=== PATIENT | male | born 1980 | race Caucasian/White ===

== ENCOUNTER 2021-01-10 17:40 | Observation (INO) ==
[2021-01-10] MEDS ORDERED: LORazepam 1 MG/2 ML VIAL IV STA (17:53)
[2021-01-10] MEDS ORDERED: SODIUM CHLORIDE 0.9% 1000ML 1,000 ML IV SCH (18:00)
[2021-01-10 18:11] LABS: Basophils # (auto) 0.02 K/uL (0-0.2); Basophils % (auto) 0.3 %; Hematocrit (blood only) 46.7 % (42-52); Hemoglobin 15.6 g/dL (14.0-18.0); Immature Granulocytes # (auto) 0.01 K/uL (0.00-0.02); Immature Granulocytes % (auto) 0.1 %; Lymphocytes # (auto) 2.41 K/uL (1.2-3.4); Lymphocytes % (auto) 32.5 %; Mean Corpuscular Hemoglobin 30.5 pg (25-34); Mean Corpuscular Hgb Conc 33.4 g/dL (32-36); Mean Corpuscular Volume 91.4 fL (80-100); Mean Platelet Volume 10.6 fL (7.4-10.4); Monocytes # (auto) 0.59 K/uL (0.11-0.59); Neutrophils # (auto) 4.38 K/uL (1.4-6.5); Neutrophils % (auto) 59.1 %; Platelet Count 237 K/uL (130-400); RDW Coefficient of Variation 14.6 % (11.5-14.5); RDW Standard Deviation 49.4 fL (36.4-46.3); Red Blood Count 5.11 M/uL (4.7-6.1); White Blood Count 7.41 K/uL (4.8-10.8)
--- NOTE | 2021-01-10 18:17 | Emergency Department Note ---
Impression & Plan Syncope, Abnormal EKG ED Provider Note NAME: JUWAN SANTACRUZ AGE: 40 SEX: M : 1980 ARRIVES VIA: Ambulance INFORMANT: Patient, ED PROVIDER(S): Carlitos Berumen DO CHIEF COMPLAINT: Syncope HPI: The patient is a 40-year-old male who presented to the emergency department for an evaluation after having a syncopal episode. It is unclear if the patient had a syncopal episode or a seizure. 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 There was reported shaking but no definite seizure activity. The patient did not bite his tongue. There is no definite reported postictal phase. The patient presented by ambulance very anxious. The patient self states he has no medical history but further history is obtained from his via telephone. He has been noticed to be having increasing anxiety recently. His significant other noticed that his blood pressure was elevated. He was taken to an urgent care center yesterday and started on Lexapro and Vistaril. He has been taking these medications but they are all new medications as of the last 48 hours. He also g ot a referral for psychiatric evaluation. The patient states that he has been noticing palpitations. He is also been noticing anxiety as well as tremors. He denies having any nausea or chest pain. He denies having any vomiting or fever. He said no exposure to COVID-19. The patient states that he is never had a cardiac work-up in the past. He was noted to have an abnormal EKG by the prehospital personnel. The patient states he does not remember ever having an EKG before or being told that it was abnormal. The patient denies any drug or alcohol use. ROS: See above HPI for pertinent positives & negatives. A total of 10 systems reviewed and were otherwise negative. PAST MEDICAL HISTORY: See Below PAST SURGICAL HISTORY: See Below FAMILY HISTORY: See Below SOCIAL HISTORY: See Below HOME MEDICATIONS: See Below ALLERGIES: See Below VITALS: See Below PHYSICAL EXAMINATION: GENERAL: The patient is awake and alert. He is very anxious appearing. EYES: The conjunctivae are clear. The pupils are round and reactive. EARS, NOSE, MOUTH AND THROAT: The nose is without any evidence of any deformity. NECK: The neck is nontender and supple. RESPIRATORY: Normal respiratory effort is noted there is no evidence of wheezing rhonchi or rales CARDIOVASCULAR: Regular rate and rhythm noted there no murmurs rubs or gallops normal S1 normal S2. GASTROINTESTINAL: The abdomen is soft. Abdomen is nontender. MUSCULOSKELETAL/EXTREMITIES: There is no evidence of gross deformity full range of motion is noted in the hips and shoulders. SKIN: There is no obvious evidence of any rash. There are no petechiae, pallor or cyanosis noted. NEUROLOGIC: Patient is awake alert and oriented x3 strength is symmetric patellar reflexes are 2+ bilaterally. The patient is tremulous in both upper and lower extremities. MEDICAL DECISION MAKING: The patient is a 40-year-old male who presented to the emergency department from his worksite for having an episode of syncope. It was advertised a seizure although the patient did not have a definite postictal phase. The patient was found to have a very abnormal EKG on arrival. The EKG was obtained from prehospital personnel. Our initial EKG in the emergency department appeared a little bit improved. He was recently started on a psychiatric medication for presumed depression and anxiety. I discussed the patient's laboratory and radiographic studies with him. He was treated with a small amount of Ativan in the emergency department and on reevaluation was significantly improved. He was feeling much better. I did recommend the patient be evaluated by the hospitalist for further inpatient work-up especially for his abnormal EKG. Initially the patient wished to be discharged home but ultimately when his significant other came to the emergency department she was able to convince him to be evaluated by the hospitalist. I discussed his case with the on-call [facility] hospitalist. They have agreed to evaluate the patient in the emergency department for further management and disposition. Triage Nursing notes reviewed. Prior medical records reviewed Vital Signs: reviewed and remarkable for no significant abnormalities Differential diagnosis: Vasovagal event, dehydration, infection, hypoglycemia, electrolyte abnormalities, cardiac sources, intracerebral event, pulmonary embolism, seizure, toxicologic, neurologic, as well as other pathologies. ER treatment provided: See below Diagnostics interpreted by me: ECG: EKG was obtained in the emergency department. My interpretation is sinus tachycardia at 104 bpm. First-degree AV block was noted. Nonspecific interventricular conduction delay was noted. No previous tracing was available. The patient had a prehospital tracing prior to arrival. My interpretation is sinus tachycardia at 85 bpm. The QRS duration was prolonged compared to the tracing in the emergency department. Cardiac Monitoring: An order was placed for continuous cardiac monitoring. The monitor shows a rate of 75 bpm sinus with rhythm. Laboratory studies: As stated above and show below. Imaging studies: See below Consultation(s): I discussed this case with Dr. Rangel who is on-call for the [facility] hospitalist group. He will evaluate the patient in the emergency department for further management and disposition. Past Med/Surg History Medical History History of Graves' disease Social History Smoking Status: Current every day smoker Tobacco Type: Cigarettes Cigarettes Per Day: 20; Second Hand Exposure: No; Do You Dip or Chew Tobacco: No; Tobacco Cessation Education Requested by Patient: No Hx Alcohol Use: Yes Hx Substance Use: No Preferred Language: Panamanian Communication Ability: Effective Beam Racker Required: No Beliefs That Will Affect Care: None Current Living Situation: Family Other Information That Helps Us Care for You: No Feels Safe at Home: Yes Assistive Devices: None Allergies Allergies Allergy/AdvReac Type Severity Reaction Status Date / Time No Known Allergies Allergy Unverified 01/10/21 18:34 Home Meds Home Medications Medication Instructions Recorded Confirmed escitalopram oxalate 10 mg tablet 10 mg PO DAILY 01/10/21 01/10/21 hydroxyzine HCl 25 mg tablet 25 mg PO HS 01/10/21 01/10/21 Results & Data (ED) Vital Signs Vital Signs - 24 hr 01/10/21 17:50 01/10/21 17:51 01/10/21 18:01 Temperature 36.8 C Temperature Source Oral Pulse Rate 104 H 108 H 100 H Pulse Rate from SpO2 Sensor 109 H 99 H Pulse Rhythm Regular Pulse Strength Normal Respiratory Rate 18 18 21 Respiratory Effort / Characteristics Non-Labored Spontaneous Respiratory Depth Normal Blood Pressure 148/97 H 115/87 147/91 H Blood Pressure Mean 114 96 109 Blood Pressure Position Lying Pulse Oximetry 96 96 99 Oxygen Delivery Method Room Air Room Air Room Air Sepsis Recent Fever Within 48 Hours No Sepsis New/Unexplained Change in Mental Status N/A Sepsis Action Taken by Nursing No Action Required 01/10/21 18:20 01/10/21 18:22 01/10/21 18:30 Temperature Temperature Source Pulse Rate 96 H 97 H Pulse Rate from SpO2 Sensor 95 H Pulse Rhythm Pulse Strength Respiratory Rate 20 19 Respiratory Effort / Characteristics Respiratory Depth Blood Pressure 140/98 Blood Pressure Mean 112 Blood Pressure Position Pulse Oximetry 96 96 97 Oxygen Delivery Method Room Air Room Air Room Air Sepsis Recent Fever Within 48 Hours Sepsis New/Unexplained Change in Mental Status Sepsis Action Taken by Nursing 01/10/21 19:15 01/10/21 19:31 01/10/21 20:03 Temperature Temperature Source Pulse Rate 94 H 93 H 92 H Pulse Rate from SpO2 Sensor 95 H 93 H Pulse Rhythm Pulse Strength Respiratory Rate 23 20 20 Respiratory Effort / Characteristics Respiratory Depth Blood Pressure 138/90 113/59 L Blood Pressure Mean 106 77 Blood Pressure Position Pulse Oximetry 96 96 98 Oxygen Delivery Method Room Air Room Air Sepsis Recent Fever Within 48 Hours Sepsis New/Unexplained Change in Mental Status Sepsis Action Taken by Nursing 01/10/21 20:10 01/10/21 20:20 01/10/21 20:30 Temperature Temperature Source Pulse Rate 92 H 91 H 91 H Pulse Rate from SpO2 Sensor Pulse Rhythm Pulse Strength Respiratory Rate 16 22 20 Respiratory Effort / Characteristics Respiratory Depth Blood Pressure Blood Pressure Mean Blood Pressure Position Pulse Oximetry 98 98 98 Oxygen Delivery Method Sepsis Recent Fever Within 48 Hours Sepsis New/Unexplained Change in Mental Status Sepsis Action Taken by Nursing 01/10/21 20:44 01/10/21 21:00 01/10/21 21:30 Temperature Temperature Source Pulse Rate 92 H 82 81 Pulse Rate from SpO2 Sensor 83 81 Pulse Rhythm Pulse Strength Respiratory Rate 16 23 24 Respiratory Effort / Characteristics Respiratory Depth Blood Pressure 122/89 106/86 126/80 Blood Pressure Mean 100 92 95 Blood Pressure Position Pulse Oximetry 98 97 95 Oxygen Delivery Method Room Air Room Air Sepsis Recent Fever Within 48 Hours Sepsis New/Unexplained Change in Mental Status Sepsis Action Taken by Nursing 01/10/21 22:00 Temperature Temperature Source Pulse Rate 78 Pulse Rate from SpO2 Sensor 78 Pulse Rhythm Pulse Strength Respiratory Rate 21 Respiratory Effort / Characteristics Respiratory Depth Blood Pressure 105/62 Blood Pressure Mean 76 Blood Pressure Position Pulse Oximetry 95 Oxygen Delivery Method Room Air Sepsis Recent Fever Within 48 Hours Sepsis New/Unexplained Change in Mental Status Sepsis Action Taken by Snf Medications Current Medication List: was personally reviewed by me Laboratory Data Attestation: I reviewed the patient's lab results. Result diagrams: 01/10/21 17:57 01/10/21 17:57 Lab Results 01/10/21 01/10/21 01/10/21 Range/Units 17:57 17:57 17:57 WBC 7.41 (4.8-10.8) K/uL RBC 5.11 (4.7-6.1) M/uL Hgb 15.6 (14.0-18.0) g/dL POC Hgb (14.0-18.0) g/dl Hct 46.7 (42-52) % POC Hct (42-52) % MCV 91.4 (80-100) fL MCH 30.5 (25-34) pg MCHC 33.4 (32-36) g/dL RDW Std Deviation 49.4 H (36.4-46.3) fL RDW Coeff of Maci 14.6 H (11.5-14.5) % Plt Count 237 (130-400) K/uL MPV 10.6 H (7.4-10.4) fL Immature Gran % (Auto) 0.1 % Neut % (Auto) 59.1 % Lymph % (Auto) 32.5 % [place]roy[place] % (Auto) 8.0 % Eos % (Auto) 0.0 % Baso % (Auto) 0.3 % Neut # (Auto) 4.38 (1.4-6.5) K/uL Lymph # (Auto) 2.41 (1.2-3.4) K/uL [place] # (Auto) 0.59 (0.11-0.59) K/uL Eos # (Auto) 0.00 (0-0.5) K/uL Baso # (Auto) 0.02 (0-0.2) K/uL Immature Gran # (Auto) 0.01 (0.00-0.02) K/uL PT 10.7 (9.0-12.0) Seconds INR 1.1 (0.9-1.1) APTT 29.6 (21.0-31.0) Seconds PTT Ratio 1.1 VBG pH (7.36-7.41) VBG pCO2 (38-50) mmHg VBG pO2 mmHg VBG HCO3 mmol/L VBG O2 Saturation % VBG Base Excess mEq/L Barometric Pressure mm/Hg POC Sodium (135-144) mmol/L Sodium 141 (136-145) mmol/L POC Potassium (3.3-5.0) mmol/L Potassium 3.9 (3.5-5.1) mmol/L POC Chloride (101-112) mmol/L Chloride 110 H (98-107) mmol/L Carbon Dioxide 24 (21-32) mmol/L POC Total CO2 (24-31) mmol/L Anion Gap 8.0 (3-11) POC Anion Gap (16-25) mmol/L POC BUN (7-18) mg/dl BUN 17 (7-18) mg/dl Creatinine 0.96 (0.6-1.4) mg/dl POC Creatinine (0.6-1.3) mg/dl Est Cr Clr Drug Dosing 100.9 ml/min Est GFR ( Amer) 115.7 ml/min Est GFR (Non-Af Amer) 99.9 ml/min BUN/Creatinine Ratio 18.1 (10-20) Glucose 86 (70-99) mg/dl POC Glucose (other) (70-99) mg/dl Calcium 7.8 L (8.5-10.1) mg/dl POC Ioniz Calcium Elan (1.12-1.32) mmol/l Magnesium 2.2 (1.8-2.4) mg/dl Total Bilirubin 0.6 (0.2-1) mg/dl AST 85 H (15-37) U/L ALT 267 H (12-78) U/L Alkaline Phosphatase 83 (45-117) U/L Total Creatine Kinase 80 (39-308) U/L Troponin I < 0.015 (0-0.045) ng/ml Total Protein 7.4 (6.4-8.2) gm/dl Albumin 3.9 (3.4-5.0) gm/dl Globulin 3.5 (2.5-4.0) gm/dl Albumin/Globulin Ratio 1.1 (0.9-2) Lipase 105 (73-393) U/L TSH 0.445 (0.300-4.500) uIu/ml Prolactin ng/ml Urine Color Urine Appearance (Clear) Urine pH (4.5-7.5) Ur Specific [place] (1.000-1.030) Urine Protein (Negative) Urine Glucose (UA) (Negative) Urine Ketones (Negative) Urine Blood (Negative) Urine Nitrite (Negative) Urine Bilirubin (Negative) Urine Urobilinogen (Negative) Ur Leukocyte Esterase (Negative) Urine WBC (Auto) (0-5) /hpf Urine RBC (Auto) (0-4) /hpf U Hyaline Cast (Auto) (0-5) /lpf U Epithel Cells (Auto) (0-5) /lpf Urine Bacteria (Auto) (Negative) Salicylates (2.8-20) mg/dl Urine Opiates Screen (Neg) Ur Methadone, Qual (Neg) Acetaminophen (10-30) ug/ml Urine Barbiturates (Neg) Ur Phencyclidine (PCP) (Neg) U Amphetamin/Meth Scrn (Neg) MDMA (Ecstasy) Screen (Neg) U Benzodiazepines Scrn (Neg) Ur Cocaine Metabolite (Neg) U Marijuana (THC) Screen (Neg) Ethyl Alcohol mg/dL (0-3) mg/dl COVID-19 Eval Order SARS-CoV-2 (PCR) (Negative) 01/10/21 01/10/21 01/10/21 Range/Units 17:57 17:57 18:17 WBC (4.8-10.8) K/uL RBC (4.7-6.1) M/uL Hgb (14.0-18.0) g/dL POC Hgb (14.0-18.0) g/dl Hct (42-52) % POC Hct (42-52) % MCV (80-100) fL MCH (25-34) pg MCHC (32-36) g/dL RDW Std Deviation (36.4-46.3) fL RDW Coeff of Maci (11.5-14.5) % Plt Count (130-400) K/uL MPV (7.4-10.4) fL Immature Gran % (Auto) % Neut % (Auto) % Lymph % (Auto) % [place] % (Auto) % Eos % (Auto) % Baso % (Auto) % Neut # (Auto) (1.4-6.5) K/uL Lymph # (Auto) (1.2-3.4) K/uL [place] # (Auto) (0.11-0.59) K/uL Eos # (Auto) (0-0.5) K/uL Baso # (Auto) (0-0.2) K/uL Immature Gran # (Auto) (0.00-0.02) K/uL PT (9.0-12.0) Seconds INR (0.9-1.1) APTT (21.0-31.0) Seconds PTT Ratio VBG pH (7.36-7.41) VBG pCO2 (38-50) mmHg VBG pO2 mmHg VBG HCO3 mmol/L VBG O2 Saturation % VBG Base Excess mEq/L Barometric Pressure mm/Hg POC Sodium (135-144) mmol/L Sodium (136-145) mmol/L POC Potassium (3.3-5.0) mmol/L Potassium (3.5-5.1) mmol/L POC Chloride (101-112) mmol/L Chloride (98-107) mmol/L Carbon Dioxide (21-32) mmol/L POC Total CO2 (24-31) mmol/L Anion Gap (3-11) POC Anion Gap (16-25) mmol/L POC BUN (7-18) mg/dl BUN (7-18) mg/dl Creatinine (0.6-1.4) mg/dl POC Creatinine (0.6-1.3) mg/dl Est Cr Clr Drug Dosing ml/min Est GFR ( Amer) ml/min Est GFR (Non-Af Amer) ml/min BUN/Creatinine Ratio (10-20) Glucose (70-99) mg/dl POC Glucose (other) (70-99) mg/dl Calcium (8.5-10.1) mg/dl POC Ioniz Calcium Elan (1.12-1.32) mmol/l Magnesium (1.8-2.4) mg/dl Total Bilirubin (0.2-1) mg/dl AST (15-37) U/L ALT (12-78) U/L Alkaline Phosphatase (45-117) U/L Total Creatine Kinase (39-308) U/L Troponin I (0-0.045) ng/ml Total Protein (6.4-8.2) gm/dl Albumin (3.4-5.0) gm/dl Globulin (2.5-4.0) gm/dl Albumin/Globulin Ratio (0.9-2) Lipase (73-393) U/L TSH (0.300-4.500) uIu/ml Prolactin 46.64 ng/ml Urine Color Urine Appearance (Clear) Urine pH (4.5-7.5) Ur Specific [place] (1.000-1.030) Urine Protein (Negative) Urine Glucose (UA) (Negative) Urine Ketones (Negative) Urine Blood (Negative) Urine Nitrite (Negative) Urine Bilirubin (Negative) Urine Urobilinogen (Negative) Ur Leukocyte Esterase (Negative) Urine WBC (Auto) (0-5) /hpf Urine RBC (Auto) (0-4) /hpf U Hyaline Cast (Auto) (0-5) /lpf U Epithel Cells (Auto) (0-5) /lpf Urine Bacteria (Auto) (Negative) Salicylates < 1.7 L (2.8-20) mg/dl Urine Opiates Screen (Neg) Ur Methadone, Qual (Neg) Acetaminophen < 2 L (10-30) ug/ml Urine Barbiturates (Neg) Ur Phencyclidine (PCP) (Neg) U Amphetamin/Meth Scrn (Neg) MDMA (Ecstasy) Screen (Neg) U Benzodiazepines Scrn (Neg) Ur Cocaine Metabolite (Neg) U Marijuana (THC) Screen (Neg) Ethyl Alcohol mg/dL < 3.0 (0-3) mg/dl COVID-19 Eval Order SARS-CoV-2 (PCR) (Negative) 01/10/21 01/10/21 01/10/21 Range/Units 18:17 18:31 18:35 WBC (4.8-10.8) K/uL RBC (4.7-6.1) M/uL Hgb (14.0-18.0) g/dL POC Hgb 14.3 (14.0-18.0) g/dl Hct (42-52) % POC Hct 42 (42-52) % MCV (80-100) fL MCH (25-34) pg MCHC (32-36) g/dL RDW Std Deviation (36.4-46.3) fL RDW Coeff of Maci (11.5-14.5) % Plt Count (130-400) K/uL MPV (7.4-10.4) fL Immature Gran % (Auto) % Neut % (Auto) % Lymph % (Auto) % [place] % (Auto) % Eos % (Auto) % Baso % (Auto) % Neut # (Auto) (1.4-6.5) K/uL Lymph # (Auto) (1.2-3.4) K/uL [place] # (Auto) (0.11-0.59) K/uL Eos # (Auto) (0-0.5) K/uL Baso # (Auto) (0-0.2) K/uL Immature Gran # (Auto) (0.00-0.02) K/uL PT (9.0-12.0) Seconds INR (0.9-1.1) APTT (21.0-31.0) Seconds PTT Ratio VBG pH 7.36 (7.36-7.41) VBG pCO2 46 (38-50) mmHg VBG pO2 25 mmHg VBG HCO3 25 mmol/L VBG O2 Saturation < 60.0 % VBG Base Excess -0.4 mEq/L Barometric Pressure 732.0 mm/Hg POC Sodium 143 (135-144) mmol/L Sodium (136-145) mmol/L POC Potassium 4.4 (3.3-5.0) mmol/L Potassium (3.5-5.1) mmol/L POC Chloride 104 (101-112) mmol/L Chloride (98-107) mmol/L Carbon Dioxide (21-32) mmol/L POC Total CO2 24 (24-31) mmol/L Anion Gap (3-11) POC Anion Gap 20.0 (16-25) mmol/L POC BUN 18 (7-18) mg/dl BUN (7-18) mg/dl Creatinine (0.6-1.4) mg/dl POC Creatinine 0.8 (0.6-1.3) mg/dl Est Cr Clr Drug Dosing ml/min Est GFR ( Amer) ml/min Est GFR (Non-Af Amer) ml/min BUN/Creatinine Ratio (10-20) Glucose (70-99) mg/dl POC Glucose (other) 86 (70-99) mg/dl Calcium (8.5-10.1) mg/dl POC Ioniz Calcium Elan 1.02 L (1.12-1.32) mmol/l Magnesium (1.8-2.4) mg/dl Total Bilirubin (0.2-1) mg/dl AST (15-37) U/L ALT (12-78) U/L Alkaline Phosphatase (45-117) U/L Total Creatine Kinase (39-308) U/L Troponin I (0-0.045) ng/ml Total Protein (6.4-8.2) gm/dl Albumin (3.4-5.0) gm/dl Globulin (2.5-4.0) gm/dl Albumin/Globulin Ratio (0.9-2) Lipase (73-393) U/L TSH (0.300-4.500) uIu/ml Prolactin ng/ml Urine Color Yellow Urine Appearance Clear (Clear) Urine pH 6.0 (4.5-7.5) Ur Specific [place] 1.018 (1.000-1.030) Urine Protein Negative (Negative) Urine Glucose (UA) Negative (Negative) Urine Ketones Negative (Negative) Urine Blood Negative (Negative) Urine Nitrite Negative (Negative) Urine Bilirubin Negative (Negative) Urine Urobilinogen Negative (Negative) Ur Leukocyte Esterase Trace H (Negative) Urine WBC (Auto) 10-30 H (0-5) /hpf Urine RBC (Auto) 0-4 (0-4) /hpf U Hyaline Cast (Auto) 1-5 (0-5) /lpf U Epithel Cells (Auto) 10-20 H (0-5) /lpf Urine Bacteria (Auto) Negative (Negative) Salicylates (2.8-20) mg/dl Urine Opiates Screen (Neg) Ur Methadone, Qual (Neg) Acetaminophen (10-30) ug/ml Urine Barbiturates (Neg) Ur Phencyclidine (PCP) (Neg) U Amphetamin/Meth Scrn (Neg) MDMA (Ecstasy) Screen (Neg) U Benzodiazepines Scrn (Neg) Ur Cocaine Metabolite (Neg) U Marijuana (THC) Screen (Neg) Ethyl Alcohol mg/dL (0-3) mg/dl COVID-19 Eval Order SARS-CoV-2 (PCR) (Negative) 01/10/21 01/10/21 01/10/21 Range/Units 18:35 21:09 21:09 WBC (4.8-10.8) K/uL RBC (4.7-6.1) M/uL Hgb (14.0-18.0) g/dL POC Hgb (14.0-18.0) g/dl Hct (42-52) % POC Hct (42-52) % MCV (80-100) fL MCH (25-34) pg MCHC (32-36) g/dL RDW Std Deviation (36.4-46.3) fL RDW Coeff of Maci (11.5-14.5) % Plt Count (130-400) K/uL MPV (7.4-10.4) fL Immature Gran % (Auto) % Neut % (Auto) % Lymph % (Auto) % [place] % (Auto) % Eos % (Auto) % Baso % (Auto) % Neut # (Auto) (1.4-6.5) K/uL Lymph # (Auto) (1.2-3.4) K/uL [place] # (Auto) (0.11-0.59) K/uL Eos # (Auto) (0-0.5) K/uL Baso # (Auto) (0-0.2) K/uL Immature Gran # (Auto) (0.00-0.02) K/uL PT (9.0-12.0) Seconds INR (0.9-1.1) APTT (21.0-31.0) Seconds PTT Ratio VBG pH (7.36-7.41) VBG pCO2 (38-50) mmHg VBG pO2 mmHg VBG HCO3 mmol/L VBG O2 Saturation % VBG Base Excess mEq/L Barometric Pressure mm/Hg POC Sodium (135-144) mmol/L Sodium (136-145) mmol/L POC Potassium (3.3-5.0) mmol/L Potassium (3.5-5.1) mmol/L POC Chloride (101-112) mmol/L Chloride (98-107) mmol/L Carbon Dioxide (21-32) mmol/L POC Total CO2 (24-31) mmol/L Anion Gap (3-11) POC Anion Gap (16-25) mmol/L POC BUN (7-18) mg/dl BUN (7-18) mg/dl Creatinine (0.6-1.4) mg/dl POC Creatinine (0.6-1.3) mg/dl Est Cr Clr Drug Dosing ml/min Est GFR ( Amer) ml/min Est GFR (Non-Af Amer) ml/min BUN/Creatinine Ratio (10-20) Glucose (70-99) mg/dl POC Glucose (other) (70-99) mg/dl Calcium (8.5-10.1) mg/dl POC Ioniz Calcium Elan (1.12-1.32) mmol/l Magnesium (1.8-2.4) mg/dl Total Bilirubin (0.2-1) mg/dl AST (15-37) U/L ALT (12-78) U/L Alkaline Phosphatase (45-117) U/L Total Creatine Kinase (39-308) U/L Troponin I (0-0.045) ng/ml Total Protein (6.4-8.2) gm/dl Albumin (3.4-5.0) gm/dl Globulin (2.5-4.0) gm/dl Albumin/Globulin Ratio (0.9-2) Lipase (73-393) U/L TSH (0.300-4.500) uIu/ml Prolactin ng/ml Urine Color Urine Appearance (Clear) Urine pH (4.5-7.5) Ur Specific [place] (1.000-1.030) Urine Protein (Negative) Urine Glucose (UA) (Negative) Urine Ketones (Negative) Urine Blood (Negative) Urine Nitrite (Negative) Urine Bilirubin (Negative) Urine Urobilinogen (Negative) Ur Leukocyte Esterase (Negative) Urine WBC (Auto) (0-5) /hpf Urine RBC (Auto) (0-4) /hpf U Hyaline Cast (Auto) (0-5) /lpf U Epithel Cells (Auto) (0-5) /lpf Urine Bacteria (Auto) (Negative) Salicylates (2.8-20) mg/dl Urine Opiates Screen Neg (Neg) Ur Methadone, Qual Neg (Neg) Acetaminophen (10-30) ug/ml Urine Barbiturates Neg (Neg) Ur Phencyclidine (PCP) Neg (Neg) U Amphetamin/Meth Scrn Neg (Neg) MDMA (Ecstasy) Screen Neg (Neg) U Benzodiazepines Scrn Neg (Neg) Ur Cocaine Metabolite Neg (Neg) U Marijuana (THC) Screen Neg (Neg) Ethyl Alcohol mg/dL (0-3) mg/dl COVID-19 Eval Order Covid19 at [facility] SARS-CoV-2 (PCR) NEGATIVE (Negative) Administered Medications Sodium Chloride (Nss 1000ml) 1,000 mls @ 125 mls/hr IV .Q8H ULI Stop: 10/02/21 23:53 Last Admin: 01/11/21 00:06 Dose: 125 mls/hr Documented by: [id number] Discontinued Medications Sodium Chloride (Nss 1000ml) 1,000 mls @ 999 mls/hr IV .Q1H1M ULI Stop: 01/10/21 19:00 Last Infusion: 01/10/21 19:17 Dose: 0 mls/hr Documented by: [id number] Admin: 01/10/21 18:16 Dose: 999 mls/hr Documented by: [id number] Lorazepam (Ativan) 1 mg in 2 mls @ 2 mls/min IV NOW STA Stop: 01/10/21 17:54 Last Admin: 01/10/21 18:16 Dose: 2 mls/min Documented by: [id number] Nicotine (Nicotine 14 Mg/24 Hr Patch) 14 mg TD ONE ONE Stop: 01/10/21 21:11 Last Admin: 01/10/21 21:18 Dose: 14 mg Documented by: [id number] Imaging Data Radiologist's Impression: Cervical Spine CT 01/10/21 17:53 CT OF THE CERVICAL SPINE CLINICAL HISTORY: poss sz COMPARISON STUDY: No previous studies for comparison. CT DOSE: TECHNIQUE: CT scan of the cervical spine was performed from the skull base to the thoracic inlet. Images are reviewed in the axial, sagittal, and coronal planes. IV contrast was not administered for this examination. A dose lowering technique was utilized adhering to the principles of ALARA. FINDINGS: The visualized portions of the lung apices reveal no evidence of pneumothorax. The prevertebral soft tissues are normal. No fractures or subluxations are visualized. There is reverse of normal cervical lordosis centered at the C5-C6 level. Also intervertebral disc space at C5-C6 is narrowed and anterior and posterior osteophytes are seen. There is mild central canal and neural foraminal stenosis is seen at this level. IMPRESSION: No acute fracture or traumatic malalignment. Mild degenerative changes as detailed above. ACT 112: Negative or not required by law. The above report was generated using voice recognition software. It may contain grammatical, syntax or spelling errors. Electronically signed by: Patricia Salazar DO 01/10/2021 8:04 PM Chest X-Ray 01/10/21 17:53 XR chest 1V portable CLINICAL HISTORY: sz COMPARISON STUDY: No previous studies for comparison. FINDINGS: No pneumothorax. No pleural effusion. No large infiltrates or consolidative lesions are seen. Cardiomediastinal silhouette is within normal limits in size. No significant pulmonary vascular congestion.. Osseous structures: unremarkable IMPRESSION: 1. No acute pulmonary process. ACT 112: Negative or not required by law. The above report was generated using voice recognition software. It may contain grammatical, syntax or spelling errors. Electronically signed by: Patricia Salazar DO 01/10/2021 6:[address] 01/10/21 17:54 CT head/brain wo con CLINICAL HISTORY: sz COMPARISON STUDY: No previous studies for comparison. TECHNIQUE: Axial CT of the brain is performed from the vertex to the skull base. IV contrast was not administered for this examination. A dose lowering technique was utilized adhering to the principles of ALARA. CT DOSE: 865.13 mGy.cm FINDINGS: No intra or extra-axial mass lesions are visualized. There is no CT evidence of acute cortical infarction. There is no evidence of midline shift. There is no acute hemorrhage. No acute depressed calvarial fractures are visualized. There is no evidence of pathologic ventricular dilatation. There is no evidence of acute sinusitis IMPRESSION: No acute intracranial findings ACT 112: Negative or not required by law. The above report was generated using voice recognition software. It may contain grammatical, syntax or spelling errors. Electronically signed by: Patricia Salazar DO 01/10/2021 7:58 PM Discharge Plan Visit Data Chief Complaint: Seizure Stated Complaint: seizure ED Provider: Carlitos Berumen Discharge Problem: Syncope, Abnormal EKG Patient Disposition: Admitted As Inpatient Condition: Good Discharge Instructions Interventions: ED Discharge Assessment Last Done: 01/10/21 23:00 Discharge Problem: Syncope Qualifiers: Syncope type: unspecified Qualified Code(s): R55 - Syncope and collapse
[2021-01-10 18:19] LABS: INR 1.1 (0.9-1.1); Partial Thromboplastin Ratio 1.1; Partial Thromboplastin Time 29.6 Seconds (21.0-31.0); Prothrombin Time 10.7 Seconds (9.0-12.0)
[2021-01-10 18:30] LABS: Alanine Aminotransferase 267 U/L (12-78); Albumin Level 3.9 gm/dl (3.4-5.0); Aspartate Aminotransferase 85 U/L (15-37); BUN Creatinine Ratio 18.1 (10-20); Blood Urea Nitrogen 17 mg/dl (7-18); Calcium 7.8 mg/dl (8.5-10.1); Carbon Dioxide 24 mmol/L (21-32); Chloride 110 mmol/L (98-107); Creatinine Clr Calc Pharmacy 100.9 ml/min; Est GFR (African American) 115.7 ml/min; Est GFR (Non-African American) 99.9 ml/min; Glucose 86 mg/dl (70-99); Lipase 105 U/L (73-393); Magnesium 2.2 mg/dl (1.8-2.4); Potassium 3.9 mmol/L (3.5-5.1); Sodium 141 mmol/L (136-145)
[2021-01-10 18:37] LABS: Base Excess VBG -0.4 mEq/L; HCO3 VBG 25 mmol/L; Oxygen Saturation VBG < 60.0 %; PCO2 VBG 46 mmHg (38-50); PO2 VBG 25 mmHg; pH VBG 7.36 (7.36-7.41)
[2021-01-10 18:38] LABS: Acetaminophen < 2 ug/ml (10-30); Salicylate < 1.7 mg/dl (2.8-20)
[2021-01-10 18:41] LABS: Albumin Globulin Ratio 1.1 (0.9-2); Alkaline Phosphatase 83 U/L (45-117); Bilirubin,Total 0.6 mg/dl (0.2-1); Creatine Kinase 80 U/L (39-308); Globulin 3.5 gm/dl (2.5-4.0); Thyroid Stimulating Hormone 0.445 uIu/ml (0.300-4.500); Total Protein 7.4 gm/dl (6.4-8.2); Troponin I < 0.015 ng/ml (0-0.045)
[2021-01-10 18:44] LABS: iSTAT Creatinine 0.8 mg/dl (0.6-1.3); iSTAT Hemoglobin 14.3 g/dl (14.0-18.0); iSTAT Ionized Calcium 1.02 mmol/l (1.12-1.32); iSTAT Potassium 4.4 mmol/L (3.3-5.0)
--- NOTE | 2021-01-10 18:45 | XRay Report ---
XR chest 1V portable CLINICAL HISTORY: sz COMPARISON STUDY: No previous studies for comparison. FINDINGS: No pneumothorax. No pleural effusion. No large infiltrates or consolidative lesions are seen. Cardiomediastinal silhouette is within normal limits in size. No significant pulmonary vascular congestion.. Osseous structures: unremarkable IMPRESSION: 1. No acute pulmonary process. ACT 112: Negative or not required by law. The above report was generated using voice recognition software. It may contain grammatical, syntax o r spelling errors. Electronically signed by: Patricia Salazar DO 01/10/2021 6:44 PM
[2021-01-10 18:52] LABS: Appearance Urine Clear (Clear); Bacteria Urine Automated Negative (Negative); Bilirubin Urine Negative (Negative); Blood Urine Negative (Negative); Color Urine Yellow; Glucose Urine UA Negative (Negative); Ketones Urine Negative (Negative); Leukocyte Esterase Urine Trace (Negative); Nitrite Urine Negative (Negative); Protein Urine Negative (Negative); RBC Urine Automated 0-4 /hpf (0-4); Specific Gravity Urine 1.018 (1.000-1.030); Urobilinogen Urine Negative (Negative)
[2021-01-10 19:20] LABS: Amphetamines+Metham, Urine Neg (Neg); Barbiturates, Urine Neg (Neg); Benzodiazepine, Urine Neg (Neg); Cocaine, Urine Neg (Neg); MDMA (Ecstacy), Urine Neg (Neg); Methadone, Urine Neg (Neg); Opiate, Urine Neg (Neg); Phencyclidine, Urine Neg (Neg)
--- NOTE | 2021-01-10 19:59 | CT Scan Report ---
CT head/brain wo con CLINICAL HISTORY: sz COMPARISON STUDY: No previous studies for comparison. TECHNIQUE: Axial CT of the brain is performed from the vertex to the skull base. IV contrast was not administered for this examination. A dose lowering technique was utilized adhering to the principles of ALARA. CT DOSE: 865.13 mGy.cm FINDINGS: No intra or extra-axial mass lesions are visualized. There is no CT evidence of acute cortical infarc tion. There is no evidence of midline shift. There is no acute hemorrhage. No acute depressed calvar ial fractures are visualized. There is no evidence of pathologic ventricular dilatation. There is no evidence of acute sinusitis IMPRESSION: No acute intracranial findings ACT 112: Negative or not required by law. The above report was generated using voice recognition software. It may contain grammatical, syntax o r spelling errors. Electronically signed by: Patricia Salazar DO 01/10/2021 7:58 PM
--- NOTE | 2021-01-10 20:06 | CT Scan Report ---
CT OF THE CERVICAL SPINE CLINICAL HISTORY: poss sz COMPARISON STUDY: No previous studies for comparison. CT DOSE: TECHNIQUE: CT scan of the cervical spine was performed from the skull base to the thoracic inlet. Miranda ges are reviewed in the axial, sagittal, and coronal planes. IV contrast was not administered for thi s examination. A dose lowering technique was utilized adhering to the principles of ALARA. FINDINGS: The visualized portions of the lung apices reveal no evidence of pneumothorax. The prevertebral soft tissues are normal. No fractures or subluxations are visualized. There is reverse of normal cervical lordosis centered at the C5-C6 level. Also intervertebral disc sp brenda at C5-C6 is narrowed and anterior and posterior osteophytes are seen. There is mild central canal and neural foraminal stenosis is seen at this level. IMPRESSION: No acute fracture or traumatic malalignment. Mild degenerative changes as detailed above. ACT 112: Negative or not required by law. The above report was generated using voice recognition software. It may contain grammatical, syntax o r spelling errors. Electronically signed by: Patricia Salazar DO 01/10/2021 8:04 PM
[2021-01-10] MEDS ORDERED: NICOTINE 14 MG/24 HR PATCH TD ONE (21:10)
[2021-01-10] MEDS ORDERED: ACETAMINOPHEN 325 MG TAB PO PRN (23:54)
[2021-01-10] MEDS ORDERED: LORazepam 1.5 MG/3 ML VIAL IV PRN (23:54)
[2021-01-10] MEDS ORDERED: NITROGLYCERIN SL 0.4 MG/TAB TAB SL PRN (23:54)
[2021-01-11] MEDS: SODIUM CHLORIDE 0.9% 1000ML 1,000 ML IV SCH ×2 (00:06→08:31)
--- NOTE | 2021-01-11 02:14 | History and Physical Report ---
DATE OF ADMISSION: 01/10/2021. CHIEF COMPLAINT: Syncope with seizure. HISTORY OF PRESENT ILLNESS: A 40-year-old male with ongoing tobacco abuse. No other significant medical problems. Was brought in because of syncope vs seizures. 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 The patient does not remember or recollect anything. The next thing he remember was the EMS coming and by that time he was alert and awake. He was brought in here out of the hospital EKG showed possible AFib versus wide complex rhythm and was brought into the ER and he was given a dose of Ativan. Currently sleepy, but able to answer all the questions appropriately and his significant other is in the room. As per his significant other, the patient a couple of days ago woke up in the middle of the night complaining of palpitations and was shaky, anxious. At that time, she checked his blood pressure and systolic was 180, but later it came down. The next day, he went to Urgent Care, where his blood pressure was okay and he was prescribed Lexapro. He just took the first dose of Lexapro in the morning today. Currently, the patient smokes two packs of cigarettes daily. Denies any alcohol use. No drug use. Does not smoke, does not use any marijuana. His urine drug screen was unremarkable in the ER. Denies any fever or chills. No cough, no chest pain, no shortness of breath, no nausea, no abdominal pain, no headache, no blurred visions, no earache, no runny nose, no sore throat. Appetite is okay, no dysphagia. Normal bowel and bladder movements. He generally goes to the bathroom frequently and that is not unusual for him. No swelling in the legs. Otherwise, he is active. He works 11- to 12-hour shifts. Currently somewhat drowsy, but otherwise hemodynamically stable. ALLERGIES: No known drug allergies. PAST MEDICAL HISTORY: As mentioned above. PAST SURGICAL HISTORY: Not on file. SOCIAL HISTORY: Smokes 2 packs of cigarettes daily. No alcohol use. No drug use. REVIEW OF SYSTEMS: As per HPI. Rest of the review of systems negative. PHYSICAL EXAMINATION: GENERAL: The patient is of moderate build, not in acute distress. VITAL SIGNS: Temperature 36.8, pulse 75, respiratory rate 24, blood pressure 120/65, oxygen 97% on room air. HEENT: Pupils equal, round and reactive to light. NECK: No JVD. No neck masses. CARDIOVASCULAR: S1 and S2 heard, regular rate and rhythm. No murmur, no gallop. RESPIRATORY SYSTEM: Normal AP diameter. No accessory muscle use. No wheezing, no crackles. ABDOMEN: Soft, bowel sounds present, nontender, no distention. CENTRAL NERVOUS SYSTEM: Cranial nerves II-XII grossly intact, nonfocal. EXTREMITIES: No edema, no erythema. LABORATORY DATA: WBC 7.4, hemoglobin 15.6, hematocrit 46.7, platelets 237. PT 10.7, INR 1.1, APTT 29.6. Venous blood gas, pH of 7.36, pCO2 of 46, pO2 of 25, bicarbonate 25. Sodium 141, potassium 3.9, chloride 110, CO2 of 24, BUN 17, creatinine 0.9, serum glucose 86. Magnesium 2.2, calcium 7.8, total bilirubin 0.6, AST 85, ALT 67, alkaline phosphatase 83, total creatinine kinase 80. Troponin I less than 0.015. Lipase 105. TSH 0.44. Prolactin of 46.64. Urinalysis: Trace leukocyte esterase. Urine drug screen negative. Ethyl alcohol less than 3. SARS-CoV-2 PCR negative. IMAGING DATA: CT of the head, no acute intracranial findings. Chest x-ray, no acute findings. Cervical spine CT, no acute fracture or traumatic malalignment, mild degenerative changes. EKG: Sinus tachycardia with first-degree AV block at a rate of 104, possible left atrial enlargement, rightward axis, nonspecific intraventricular conduction block. ASSESSMENT AND PLAN: This is a 40-year-old male who presents with a syncope with seizures. 1. Syncope with seizures: The patient had no biting of the tongue or no incontinence during the episode. Since the abnormal EKG could be syncope from dysrhythmia, will monitor in the tele floor. Serial enzymes, echocardiogram, and consult cardiology in the a.m. Will also do EEG and consult neurology and monitor.Ativan prn for any seizures. 2. Tobacco abuse: Needs counseling. 3. History of possible anxiety: Recently started Lexapro, just had one dose. Will hold it for now. 4. Deep venous thrombosis prophylaxis: Sequential compression devices. DISPOSITION: Closely monitor in the tele floor. Level 1 full code. Expect to discharge home and follow with family doctor. Job ID: [id number] [facility]OSPITALDarrell
[2021-01-11 06:22] LABS: Basophils # (auto) 0.03 K/uL (0-0.2); Basophils % (auto) 0.4 %; Hemoglobin 14.5 g/dL (14.0-18.0); Immature Granulocytes # (auto) 0.02 K/uL (0.00-0.02); Immature Granulocytes % (auto) 0.3 %; Lymphocytes # (auto) 2.44 K/uL (1.2-3.4); Lymphocytes % (auto) 30.8 %; Mean Corpuscular Hemoglobin 30.5 pg (25-34); Mean Corpuscular Volume 92.6 fL (80-100); Mean Platelet Volume 10.4 fL (7.4-10.4); Monocytes % (auto) 7.6 %; Neutrophils # (auto) 4.82 K/uL (1.4-6.5); Neutrophils % (auto) 60.9 %; Platelet Count 197 K/uL (130-400); RDW Coefficient of Variation 14.6 % (11.5-14.5); RDW Standard Deviation 49.9 fL (36.4-46.3); Red Blood Count 4.75 M/uL (4.7-6.1); White Blood Count 7.91 K/uL (4.8-10.8)
[2021-01-11 06:53] LABS: BUN Creatinine Ratio 16.6 (10-20); Blood Urea Nitrogen 12 mg/dl (7-18); Calcium 7.5 mg/dl (8.5-10.1); Carbon Dioxide 27 mmol/L (21-32); Chloride 112 mmol/L (98-107); Creatinine Clr Calc Pharmacy 134.6 ml/min; Est GFR (African American) 137.2 ml/min; Est GFR (Non-African American) 118.3 ml/min; Glucose 77 mg/dl (70-99); Magnesium 2.2 mg/dl (1.8-2.4); Potassium 4.1 mmol/L (3.5-5.1); Sodium 141 mmol/L (136-145)
[2021-01-11 06:57] LABS: Troponin I < 0.015 ng/ml (0-0.045)
--- NOTE | 2021-01-11 08:45 | Electroencephalogram ---
EEG Procedure Note Date of Service January 11, 2021 Start / End Times Start Time: 05:26 End Time: 05:[address] Rangel History A 40-year-old male with recent seizure-like activity. EEG performed for evaluation epileptiform activity. Home Medication List Medication Instructions Recorded Confirmed Type escitalopram oxalate 10 mg tablet 10 mg PO DAILY 01/10/21 01/10/21 History hydroxyzine HCl 25 mg tablet 25 mg PO HS 01/10/21 01/10/21 History Inpatient Medication List Sodium Chloride (Nss 1000ml) 1,000 mls @ 125 mls/hr IV .Q8H ULI Stop: 02/09/21 23:53 Last Admin: 01/11/21 08:31 Dose: 125 mls/hr Documented by: [id number] Infusion: 01/11/21 08:06 Dose: 125 mls/hr Documented by: [id number] Admin: 01/11/21 00:06 Dose: 125 mls/hr Documented by: [id number] Discontinued Medications Sodium Chloride (Nss 1000ml) 1,000 mls @ 999 mls/hr IV .Q1H1M ULI Stop: 01/10/21 19:00 Last Infusion: 01/10/21 19:17 Dose: 0 mls/hr Documented by: [id number] Admin: 01/10/21 18:16 Dose: 999 mls/hr Documented by: [id number] Lorazepam (Ativan) 1 mg in 2 mls @ 2 mls/min IV NOW STA Stop: 01/10/21 17:54 Last Admin: 01/10/21 18:16 Dose: 2 mls/min Documented by: [id number] Nicotine (Nicotine 14 Mg/24 Hr Patch) 14 mg TD ONE ONE Stop: 01/10/21 21:11 Last Admin: 01/10/21 21:18 Dose: 14 mg Documented by: [id number] Description This is a 21 electrode EEG with a single channel dedicated to limited EKG. The electrodes were placed in accordance with the International 10-20 system. REPORT: At the onset of the EEG the patient is awake. The background is symmetric, organized. There is a normal anterior to posterior gradient. The posterior dominant rhythm is 9-10 Hz. Drowsiness is characterized by increased theta activity, reduced blink rate, and decreased myogenic artifact. No epileptiform discharges are seen. No stage 2 sleep transients are recorded. Photic stimulation is performed and does not induce any abnormalities. Interpretation IMPRESSION: This is a normal awake and drowsy routine EEG. There is no evidence of focal slowing or epileptiform activity.
--- NOTE | 2021-01-11 10:18 | Cardiology Consultation ---
Date of Consultation January 11, 2021 Assessment & Plan (1) Syncope: No discerned source suggest cardiac etiology at this time. Normal structural heart by echocardiography, normal troponin. No arrhythmias on telemetry since admission EKGs do demonstrate nonspecific interventricular conduction delay Recommendations: Tobacco cessation Neurology evaluation in process Would avoid use of Lexapro Event monitor on discharge to complete evaluation (2) Abnormal EKG: EKG with nonspecific interventricular conduction delay without priors for comparison History of Present Illness Reason for Consultation: Syncope Requesting Physician: Dr. Mosley Attending Physician: Clarissa Mosley MD History of Present Illness Patient is a 40-year-old male without prior history of cardiac disease by his own description. Notes no prior history of hypertension diabetes, rheumatic fever scarlet fever, angina or congestive heart failure. No history of a rrhythmias tachypalpitations prior syncope or near syncope. Patient notes recent symptoms of increased anxiety malaise difficulty sleeping with using multiple [id number] medications to help with sleep. He sought recent evaluation at urgent care and was begun on day of admission Vistaril and Lexapro. 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 He has no recollection of the event at this point in time and notes mild confusion overnight. No fevers chills or unexplained infections no cough or shortness of breath. Patient was becoming responsive by the time of EMS assessed patient but tachycardic with interventricular conduction delay EKGs demonstrate sinus rhythm with nonspecific interventricular conduction delay. No arrhythmias on telemetry, no QT prolongation. Allergies Allergy/AdvReac Type Severity Reaction Status Date / Time No Known Allergies Allergy Unverified 01/10/21 18:34 Home Medications Medication Instructions Recorded Confirmed Type escitalopram oxalate 10 mg tablet 10 mg PO DAILY 01/10/21 01/10/21 History hydroxyzine HCl 25 mg tablet 25 mg PO HS 01/10/21 01/10/21 History Patient History Medical History History of Graves' disease Social History Smoking Status: Current every day smoker Tobacco Type: Cigarettes Cigarettes Per Day: 20; Second Hand Exposure: No; Do You Dip or Chew Tobacco: No; Tobacco Cessation Education Requested by Patient: No Hx Alcohol Use: Yes Hx Substance Use: No Preferred Language: Vietnamese Communication Ability: Effective Training Personnel Supervisor Required: No Beliefs That Will Affect Care: None Current Living Situation: Family Other Information That Helps Us Care for You: No Feels Safe at Home: Yes Assistive Devices: None Review of Systems Review of Systems: All systems reviewed & are unremarkable except as noted in HPI & below Physical Exam Constitutional: + thin; no acute distress Eyes: PERRL, conjunctivae normal, anicteric sclerae ENMT: external ear and nose normal, oropharynx normal Neck: trachea midline, no thyromegaly Respiratory: normal respiratory effort, lungs clear to auscultation Cardiovascular: Rate/Rhythm: regular rate and regular rhythm Heart Sounds: normal S1 and normal S2; no gallop and no murmur Palpation: normal PMI Vessels: normal carotid upstroke and radial pulses present; no JVD and no carotid bruit Extremities: no edema Gastrointestinal (Abdomen): normal bowel sounds, soft, nontender, no hepatosplenomegaly Musculoskeletal: no cyanosis or clubbing, extremities motor strength 5/5 Skin: Hyperpigmentation overlying elbows and knees Neurologic: PERRL, EOMI, accommodation nl, no face palsy, no dysarthria Psychiatric: Orientation: alert and oriented x 3 Affect: + flat affect Results & Data ([facility]) Vital Signs (Past 12 Hours) Vital Signs Temp Pulse Pulse Resp BP BP BP 01/11/21 08:37 76 01/11/21 07:08 36.8 C 71 18 101/61 01/11/21 04:19 36.8 C 65 16 118/73 01/10/21 23:54 36.8 C 78 18 131/90 01/10/21 22:30 75 24 120/65 01/10/21 22:24 77 16 105/62 Pulse Ox 01/11/21 08:37 01/11/21 07:08 96 01/11/21 04:19 96 01/10/21 23:54 99 01/10/21 22:30 97 01/10/21 22:24 96 Laboratory Results Laboratory Results - last 24 hr 01/10/21 01/10/21 01/10/21 17:57 17:57 17:57 WBC 7.41 RBC 5.11 Hgb 15.6 POC Hgb Hct 46.7 POC Hct MCV 91.4 MCH 30.5 MCHC 33.4 RDW Std Deviation 49.4 H RDW Coeff of Maci 14.6 H Plt Count 237 MPV 10.6 H Immature Gran % (Auto) 0.1 Neut % (Auto) 59.1 Lymph % (Auto) 32.5 Stone % (Auto) 8.0 Eos % (Auto) 0.0 Baso % (Auto) 0.3 Neut # (Auto) 4.38 Lymph # (Auto) 2.41 Stone # (Auto) 0.59 Eos # (Auto) 0.00 Baso # (Auto) 0.02 Immature Gran # (Auto) 0.01 PT 10.7 INR 1.1 APTT 29.6 PTT Ratio 1.1 VBG pH VBG pCO2 VBG pO2 VBG HCO3 VBG O2 Saturation VBG Base Excess Barometric Pressure POC Sodium Sodium 141 POC Potassium Potassium 3.9 POC Chloride Chloride 110 H Carbon Dioxide 24 POC Total CO2 Anion Gap 8.0 POC Anion Gap POC BUN BUN 17 Creatinine 0.96 POC Creatinine Est Cr Clr Drug Dosing 100.9 Est GFR ( Amer) 115.7 Est GFR (Non-Af Amer) 99.9 BUN/Creatinine Ratio 18.1 Glucose 86 POC Glucose (other) Lactate Calcium 7.8 L POC Ioniz Calcium Elan Magnesium 2.2 Total Bilirubin 0.6 AST 85 H ALT 267 H Alkaline Phosphatase 83 Total Creatine Kinase 80 Troponin I < 0.015 Total Protein 7.4 Albumin 3.9 Globulin 3.5 Albumin/Globulin Ratio 1.1 Lipase 105 TSH 0.445 Prolactin Urine Color Urine Appearance Urine pH Ur Specific [place] Urine Protein Urine Glucose (UA) Urine Ketones Urine Blood Urine Nitrite Urine Bilirubin Urine Urobilinogen Ur Leukocyte Esterase Urine WBC (Auto) Urine RBC (Auto) U Hyaline Cast (Auto) U Epithel Cells (Auto) Urine Bacteria (Auto) Salicylates Urine Opiates Screen Ur Methadone, Qual Acetaminophen Urine Barbiturates Ur Phencyclidine (PCP) U Amphetamin/Meth Scrn MDMA (Ecstasy) Screen U Benzodiazepines Scrn Ur Cocaine Metabolite U Marijuana (THC) Screen Ethyl Alcohol mg/dL COVID-19 Eval Order SARS-CoV-2 (PCR) 01/10/21 01/10/21 01/10/21 17:57 17:57 18:17 WBC RBC Hgb POC Hgb Hct POC Hct MCV MCH MCHC RDW Std Deviation RDW Coeff of Maci Plt Count MPV Immature Gran % (Auto) Neut % (Auto) Lymph % (Auto) Stone % (Auto) Eos % (Auto) Baso % (Auto) Neut # (Auto) Lymph # (Auto) Stone # (Auto) Eos # (Auto) Baso # (Auto) Immature Gran # (Auto) PT INR APTT PTT Ratio VBG pH VBG pCO2 VBG pO2 VBG HCO3 VBG O2 Saturation VBG Base Excess Barometric Pressure POC Sodium Sodium POC Potassium Potassium POC Chloride Chloride Carbon Dioxide POC Total CO2 Anion Gap POC Anion Gap POC BUN BUN Creatinine POC Creatinine Est Cr Clr Drug Dosing Est GFR ( Amer) Est GFR (Non-Af Amer) BUN/Creatinine Ratio Glucose POC Glucose (other) Lactate Calcium POC Ioniz Calcium Elan Magnesium Total Bilirubin AST ALT Alkaline Phosphatase Total Creatine Kinase Troponin I Total Protein Albumin Globulin Albumin/Globulin Ratio Lipase TSH Prolactin 46.64 Urine Color Urine Appearance Urine pH Ur Specific [place] Urine Protein Urine Glucose (UA) Urine Ketones Urine Blood Urine Nitrite Urine Bilirubin Urine Urobilinogen Ur Leukocyte Esterase Urine WBC (Auto) Urine RBC (Auto) U Hyaline Cast (Auto) U Epithel Cells (Auto) Urine Bacteria (Auto) Salicylates < 1.7 L Urine Opiates Screen Ur Methadone, Qual Acetaminophen < 2 L Urine Barbiturates Ur Phencyclidine (PCP) U Amphetamin/Meth Scrn MDMA (Ecstasy) Screen U Benzodiazepines Scrn Ur Cocaine Metabolite U Marijuana (THC) Screen Ethyl Alcohol mg/dL < 3.0 COVID-19 Eval Order SARS-CoV-2 (PCR) 01/10/21 01/10/21 01/10/21 18:17 18:31 18:35 WBC RBC Hgb POC Hgb 14.3 Hct POC Hct 42 MCV MCH MCHC RDW Std Deviation RDW Coeff of Maci Plt Count MPV Immature Gran % (Auto) Neut % (Auto) Lymph % (Auto) Stone % (Auto) Eos % (Auto) Baso % (Auto) Neut # (Auto) Lymph # (Auto) Stone # (Auto) Eos # (Auto) Baso # (Auto) Immature Gran # (Auto) PT INR APTT PTT Ratio VBG pH 7.36 VBG pCO2 46 VBG pO2 25 VBG HCO3 25 VBG O2 Saturation < 60.0 VBG Base Excess -0.4 Barometric Pressure 732.0 POC Sodium 143 Sodium POC Potassium 4.4 Potassium POC Chloride 104 Chloride Carbon Dioxide POC Total CO2 24 Anion Gap POC Anion Gap 20.0 POC BUN 18 BUN Creatinine POC Creatinine 0.8 Est Cr Clr Drug Dosing Est GFR ( Amer) Est GFR (Non-Af Amer) BUN/Creatinine Ratio Glucose POC Glucose (other) 86 Lactate Calcium POC Ioniz Calcium Elan 1.02 L Magnesium Total Bilirubin AST ALT Alkaline Phosphatase Total Creatine Kinase Troponin I Total Protein Albumin Globulin Albumin/Globulin Ratio Lipase TSH Prolactin Urine Color Yellow Urine Appearance Clear Urine pH 6.0 Ur Specific [place] 1.018 Urine Protein Negative Urine Glucose (UA) Negative Urine Ketones Negative Urine Blood Negative Urine Nitrite Negative Urine Bilirubin Negative Urine Urobilinogen Negative Ur Leukocyte Esterase Trace H Urine WBC (Auto) 10-30 H Urine RBC (Auto) 0-4 U Hyaline Cast (Auto) 1-5 U Epithel Cells (Auto) 10-20 H Urine Bacteria (Auto) Negative Salicylates Urine Opiates Screen Ur Methadone, Qual Acetaminophen Urine Barbiturates Ur Phencyclidine (PCP) U Amphetamin/Meth Scrn MDMA (Ecstasy) Screen U Benzodiazepines Scrn Ur Cocaine Metabolite U Marijuana (THC) Screen Ethyl Alcohol mg/dL COVID-19 Eval Order SARS-CoV-2 (PCR) 01/10/21 01/10/21 01/10/21 18:35 21:09 21:09 WBC RBC Hgb POC Hgb Hct POC Hct MCV MCH MCHC RDW Std Deviation RDW Coeff of Maci Plt Count MPV Immature Gran % (Auto) Neut % (Auto) Lymph % (Auto) Stone % (Auto) Eos % (Auto) Baso % (Auto) Neut # (Auto) Lymph # (Auto) Stone # (Auto) Eos # (Auto) Baso # (Auto) Immature Gran # (Auto) PT INR APTT PTT Ratio VBG pH VBG pCO2 VBG pO2 VBG HCO3 VBG O2 Saturation VBG Base Excess Barometric Pressure POC Sodium Sodium POC Potassium Potassium POC Chloride Chloride Carbon Dioxide POC Total CO2 Anion Gap POC Anion Gap POC BUN BUN Creatinine POC Creatinine Est Cr Clr Drug Dosing Est GFR ( Amer) Est GFR (Non-Af Amer) BUN/Creatinine Ratio Glucose POC Glucose (other) Lactate Calcium POC Ioniz Calcium Elan Magnesium Total Bilirubin AST ALT Alkaline Phosphatase Total Creatine Kinase Troponin I Total Protein Albumin Globulin Albumin/Globulin Ratio Lipase TSH Prolactin Urine Color Urine Appearance Urine pH Ur Specific [place] Urine Protein Urine Glucose (UA) Urine Ketones Urine Blood Urine Nitrite Urine Bilirubin Urine Urobilinogen Ur Leukocyte Esterase Urine WBC (Auto) Urine RBC (Auto) U Hyaline Cast (Auto) U Epithel Cells (Auto) Urine Bacteria (Auto) Salicylates Urine Opiates Screen Neg Ur Methadone, Qual Neg Acetaminophen Urine Barbiturates Neg Ur Phencyclidine (PCP) Neg U Amphetamin/Meth Scrn Neg MDMA (Ecstasy) Screen Neg U Benzodiazepines Scrn Neg Ur Cocaine Metabolite Neg U Marijuana (THC) Screen Neg Ethyl Alcohol mg/dL COVID-19 Eval Order Covid19 at [facility] SARS-CoV-2 (PCR) NEGATIVE 01/10/21 01/11/21 01/11/21 22:36 05:55 05:55 WBC 7.91 RBC 4.75 Hgb 14.5 POC Hgb Hct 44.0 POC Hct MCV 92.6 MCH 30.5 MCHC 33.0 RDW Std Deviation 49.9 H RDW Coeff of Maci 14.6 H Plt Count 197 MPV 10.4 Immature Gran % (Auto) 0.3 Neut % (Auto) 60.9 Lymph % (Auto) 30.8 Stone % (Auto) 7.6 Eos % (Auto) 0.0 Baso % (Auto) 0.4 Neut # (Auto) 4.82 Lymph # (Auto) 2.44 Stone # (Auto) 0.60 H Eos # (Auto) 0.00 Baso # (Auto) 0.03 Immature Gran # (Auto) 0.02 PT INR APTT PTT Ratio VBG pH VBG pCO2 VBG pO2 VBG HCO3 VBG O2 Saturation VBG Base Excess Barometric Pressure POC Sodium Sodium 141 POC Potassium Potassium 4.1 POC Chloride Chloride 112 H Carbon Dioxide 27 POC Total CO2 Anion Gap 2.0 L POC Anion Gap POC BUN BUN 12 Creatinine 0.72 POC Creatinine Est Cr Clr Drug Dosing 134.6 Est GFR ( Amer) 137.2 Est GFR (Non-Af Amer) 118.3 BUN/Creatinine Ratio 16.6 Glucose 77 POC Glucose (other) Lactate 0.6 Calcium 7.5 L POC Ioniz Calcium Elan Magnesium 2.2 Total Bilirubin AST ALT Alkaline Phosphatase Total Creatine Kinase Troponin I < 0.015 Total Protein Albumin Globulin Albumin/Globulin Ratio Lipase TSH Prolactin Urine Color Urine Appearance Urine pH Ur Specific [place] Urine Protein Urine Glucose (UA) Urine Ketones Urine Blood Urine Nitrite Urine Bilirubin Urine Urobilinogen Ur Leukocyte Esterase Urine WBC (Auto) Urine RBC (Auto) U Hyaline Cast (Auto) U Epithel Cells (Auto) Urine Bacteria (Auto) Salicylates Urine Opiates Screen Ur Methadone, Qual Acetaminophen Urine Barbiturates Ur Phencyclidine (PCP) U Amphetamin/Meth Scrn MDMA (Ecstasy) Screen U Benzodiazepines Scrn Ur Cocaine Metabolite U Marijuana (THC) Screen Ethyl Alcohol mg/dL COVID-19 Eval Order SARS-CoV-2 (PCR) 01/11/21 08:53 WBC RBC Hgb POC Hgb Hct POC Hct MCV MCH MCHC RDW Std Deviation RDW Coeff of Maci Plt Count MPV Immature Gran % (Auto) Neut % (Auto) Lymph % (Auto) Stone % (Auto) Eos % (Auto) Baso % (Auto) Neut # (Auto) Lymph # (Auto) Stone # (Auto) Eos # (Auto) Baso # (Auto) Immature Gran # (Auto) PT INR APTT PTT Ratio VBG pH VBG pCO2 VBG pO2 VBG HCO3 VBG O2 Saturation VBG Base Excess Barometric Pressure POC Sodium Sodium POC Potassium Potassium POC Chloride Chloride Carbon Dioxide POC Total CO2 Anion Gap POC Anion Gap POC BUN BUN Creatinine POC Creatinine Est Cr Clr Drug Dosing Est GFR ( Amer) Est GFR (Non-Af Amer) BUN/Creatinine Ratio Glucose POC Glucose (other) Lactate Calcium POC Ioniz Calcium Elan Magnesium Total Bilirubin AST ALT Alkaline Phosphatase Total Creatine Kinase Troponin I < 0.015 Total Protein Albumin Globulin Albumin/Globulin Ratio Lipase TSH Prolactin Urine Color Urine Appearance Urine pH Ur Specific [place] Urine Protein Urine Glucose (UA) Urine Ketones Urine Blood Urine Nitrite Urine Bilirubin Urine Urobilinogen Ur Leukocyte Esterase Urine WBC (Auto) Urine RBC (Auto) U Hyaline Cast (Auto) U Epithel Cells (Auto) Urine Bacteria (Auto) Salicylates Urine Opiates Screen Ur Methadone, Qual Acetaminophen Urine Barbiturates Ur Phencyclidine (PCP) U Amphetamin/Meth Scrn MDMA (Ecstasy) Screen U Benzodiazepines Scrn Ur Cocaine Metabolite U Marijuana (THC) Screen Ethyl Alcohol mg/dL COVID-19 Eval Order SARS-CoV-2 (PCR) Diagnostic Findings Echocardiogram 01/11/2021 normal ECG Indication: syncope Rhythm: normal sinus Findings: + other (Nonspecific interventricular conduction delay) and + PVC (1) Syncope Syncope type: unspecified Qualified Code(s): R55 - Syncope and collapse
--- NOTE | 2021-01-11 13:11 | Neurology Consultation ---
Date of Consultation January 11, 2021 Assessment & Plan (1) Syncope: Supervising Physician Co-Signing Physician Notes Patient was seen and examined this afternoon. He is largely amnestic to the events of yesterday although states he was at work feeling okay and then reportedly must have had a loss of consciousness. He did not bite his tongue with no urinary incontinence. He has no history of prior syncope or seizures. He reports no family history of epilepsy. No history of childhood seizures. He was recently started on 2 new medication which he notes was Lexapro which he had 2 doses as well as hydroxyzine. He states to me is very concerned about the bill for this hospital admission. Otherwise he reports fine without any new complaints or concerns. He feels back to baseline. He does note at home ever occasionally having a tremor although not at the moment. He is otherwise not on any additional medications. He denies any illicit drug use or alcohol. No focal neurological deficit noted on examination today. His tongue is without abrasion. At this point I agree with cardiology and that this was a presumed syncopal episode. Other differential diagnosis includes possible adverse side effect from recent SSRI. Recommend stopping Lexapro. Routine EEG was normal which was reassuring. At this point no strong clinical suspicion that this patient has epilepsy and requires an antiepileptic medication. Patient lives in the [facility] and elects to follow-up with his PCP upon discharge. Should he have any recurrent events will need additional neurological consultation. Okay to discharge from neurology standpoint. Please contact me with any additional questions or concerns. History of Present Illness Reason for Consultation: possible seizure Requesting Physician: Clarissa Mosley MD Attending Physician: Clarissa Mosley MD History of Present Illness David is a 40 year old male with history of tobacco abuse. He was brought to the ED due to an episode of syncope vs seizures. 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 He does not remember the event but does remember the EMS coming and by that time he was alert and awake. EKG showed possible AFib versus wide complex rhythm and was brought into the ER and he was given a dose of Ativan. He also woke a at night complaining of palpitations and was shaky, anxious. At that time his systolic was 180, but later it came down. He was recently started on Lexapro. He smokes two packs of cigarettes daily. Allergies Allergy/AdvReac Type Severity Reaction Status Date / Time No Known Allergies Allergy Unverified 01/10/21 18:34 Home Medications Medication Instructions Recorded Confirmed Type escitalopram oxalate 10 mg tablet 10 mg PO DAILY 01/10/21 01/10/21 History hydroxyzine HCl 25 mg tablet 25 mg PO HS 01/10/21 01/10/21 History Patient History Medical History (Updated 01/11/21 @ 16:22 by Clarissa Mosley MD) History of Graves' disease Social History Smoking Status: Current every day smoker Tobacco Type: Cigarettes Cigarettes Per Day: 20; Second Hand Exposure: No; Do You Dip or Chew Tobacco: No; Tobacco Cessation Education Requested by Patient: No Hx Alcohol Use: Yes Hx Substance Use: No Preferred Language: Botswanan Communication Ability: Effective Sociology Instructor Required: No Beliefs That Will Affect Care: None marital status: Current Living Situation: Family How many Children do You have: 1 Other Information That Helps Us Care for You: No Feels Safe at Home: Yes Assistive Devices: None Physical Exam Physical Exam: EXAM: Constitutional: appearance normally developed Face: normocephalic and atraumatic Eyes: normal lids, normal conjunctiva Neck: supple Respiratory: normal effort Cardiovascular: normal pulses Abdomen: non distended Skin: no rashes, lesions, or ulcers noted Psychiatric: normal mood and normal affect NEUROLOGIC EXAMINATION: Appearance: no acute distress Orientation: awake, alert and oriented x 3 Mental Status: alert Attention: normal Knowledge: appropriate Language: no aphasia Speech: no dysarthria Cranial Nerves: CN 2 - no visual defect on confrontation and pupils round, equal, reactive to light CN 3, 4, 6 - extra-ocular movements intact CN 5 - facial sensation intact CN 7 - no facial asymmetry CN 8 - intact hearing CN 9, 10 - palate symmetric CN 11 - good shoulder shrug CN 12 - tongue midline Gait: stable, no ataxia Coordination: no ataxia with finger to nose testing Sensory: intact and symmetric to light touch Muscle Tone: normal Muscle exam: Results & Data ([facility]) Vital Signs (Past 12 Hours) Vital Signs Temp Pulse Pulse Resp BP BP Pulse Ox 01/11/21 10:58 36.7 C 64 19 121/76 97 01/11/21 08:37 76 01/11/21 07:08 36.8 C 71 18 101/61 96 01/11/21 04:19 36.8 C 65 16 118/73 96 Laboratory Results Abnormal lab results 01/10/21 01/10/21 01/10/21 Range/Units 17:57 17:57 17:57 RDW Std Deviation 49.4 H (36.4-46.3) fL RDW Coeff of Maci 14.6 H (11.5-14.5) % MPV 10.6 H (7.4-10.4) fL [place] # (Auto) (0.11-0.59) K/uL Chloride 110 H (98-107) mmol/L Anion Gap (3-11) Calcium 7.8 L (8.5-10.1) mg/dl POC Ioniz Calcium Elan (1.12-1.32) mmol/l AST 85 H (15-37) U/L ALT 267 H (12-78) U/L Ur Leukocyte Esterase (Negative) Urine WBC (Auto) (0-5) /hpf U Epithel Cells (Auto) (0-5) /lpf Salicylates < 1.7 L (2.8-20) mg/dl Acetaminophen < 2 L (10-30) ug/ml 01/10/21 01/10/21 01/11/21 Range/Units 18:31 18:35 05:55 RDW Std Deviation 49.9 H (36.4-46.3) fL RDW Coeff of Maci 14.6 H (11.5-14.5) % MPV (7.4-10.4) fL [place] # (Auto) 0.60 H (0.11-0.59) K/uL Chloride (98-107) mmol/L Anion Gap (3-11) Calcium (8.5-10.1) mg/dl POC Ioniz Calcium Elan 1.02 L (1.12-1.32) mmol/l AST (15-37) U/L ALT (12-78) U/L Ur Leukocyte Esterase Trace H (Negative) Urine WBC (Auto) 10-30 H (0-5) /hpf U Epithel Cells (Auto) 10-20 H (0-5) /lpf Salicylates (2.8-20) mg/dl Acetaminophen (10-30) ug/ml 01/11/21 Range/Units 05:55 RDW Std Deviation (36.4-46.3) fL RDW Coeff of Maci (11.5-14.5) % MPV (7.4-10.4) fL [place] # (Auto) (0.11-0.59) K/uL Chloride 112 H (98-107) mmol/L Anion Gap 2.0 L (3-11) Calcium 7.5 L (8.5-10.1) mg/dl POC Ioniz Calcium Elan (1.12-1.32) mmol/l AST (15-37) U/L ALT (12-78) U/L Ur Leukocyte Esterase (Negative) Urine WBC (Auto) (0-5) /hpf U Epithel Cells (Auto) (0-5) /lpf Salicylates (2.8-20) mg/dl Acetaminophen (10-30) ug/ml Diagnostic Findings CT head- No acute intracranial findings EEG- This is a normal awake and drowsy routine EEG. There is no evidence of focal slowing or epileptiform activity. (1) Syncope Syncope type: unspecified Qualified Code(s): R55 - Syncope and collapse
--- NOTE | 2021-01-11 16:18 | Hospitalist Progress Note ---
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 Admission and Anticipated Discharge Date Admission Date: January 10, 2021 Subjective 01/11/2021 The patient was seen and examined in telemetry unit He was brought in from [facility] with a possible syncope and/or seizure Remains minimally confused but denies any other symptoms today No more seizures noted while in the hospital Review of Systems Review of Systems: All systems reviewed and are unremarkable except as noted below Physical Exam Physical Exam: Lying in bed comfortably Constitutional: + ill appearing and average body habitus Eyes: PERRL, conjunctivae normal, anicteric sclerae ENMT: external ear and nose normal, oropharynx normal Neck: trachea midline, no thyromegaly Respiratory: no respiratory distress Auscultation: lungs clear to auscultation bilaterally Cardiovascular: Rate/Rhythm: regular rate and regular rhythm; not tachycardic Heart Sounds: normal S1 and normal S2; no murmur Extremities: no edema Gastrointestinal (Abdomen): normal bowel sounds, soft, nontender, no hepatosplenomegaly Musculoskeletal: No acute arthritis in any joint Neurologic: Alert, awake and oriented x3. Pleasantly confused. no focal sensory and motor deficit appreciated Results & Data Results & Data ([facility]) Vital Signs (Past 12 Hours) Vital Signs Temp Pulse Pulse Resp BP BP Pulse Ox 01/11/21 16:05 36.7 C 62 19 114/69 97 01/11/21 15:00 65 01/11/21 10:58 36.7 C 64 19 121/76 97 01/11/21 08:37 76 01/11/21 07:08 36.8 C 71 18 101/61 96 01/11/21 04:19 36.8 C 65 16 118/73 96 Laboratory Results Short CBC 01/10/21 01/11/21 Range/Units 17:57 05:55 WBC 7.41 7.91 (4.8-10.8) K/uL Hgb 15.6 14.5 (14.0-18.0) g/dL Hct 46.7 44.0 (42-52) % Plt Count 237 197 (130-400) K/uL BMP 01/10/21 01/11/21 17:57 05:55 Sodium 141 141 Potassium 3.9 4.1 Chloride 110 H 112 H Carbon Dioxide 24 27 BUN 17 12 Creatinine 0.96 0.72 Glucose 86 77 Calcium 7.8 L 7.5 L Cardiac Enzymes 01/10/21 01/11/21 01/11/21 Range/Units 17:57 05:55 08:53 Total Creatine Kinase 80 (39-308) U/L Troponin I < 0.015 < 0.015 < 0.015 (0-0.045) ng/ml Liver Function 01/10/21 Range/Units 17:57 Total Bilirubin 0.6 (0.2-1) mg/dl AST 85 H (15-37) U/L ALT 267 H (12-78) U/L Alkaline Phosphatase 83 (45-117) U/L Albumin 3.9 (3.4-5.0) gm/dl Urine 01/10/21 Range/Units 18:35 Urine Color Yellow Urine Appearance Clear (Clear) Urine pH 6.0 (4.5-7.5) Ur Specific [place] 1.018 (1.000-1.030) Urine Protein Negative (Negative) Urine Glucose (UA) Negative (Negative) Medications Administered Current Inpatient Medications Acetaminophen (Acetaminophen 325 Mg Tab) 650 mg PO Q4H PRN PRN Reason: Pain or Fever Stop: 02/09/21 23:53 Lorazepam (Ativan) 1.5 mg in 3 mls @ 3 mls/min IV Q4H PRN PRN Reason: Breakthrough Seizures Stop: 02/09/21 23:53 Miscellaneous (Remove Nicoderm Patch) 1 ea N/A HS ULI Stop: 01/11/21 21:01 Nitroglycerin (Nitroglycerin Sl 0.4 Mg/Tab Tab) 0.4 mg SL UD PRN PRN Reason: Chest Pain Stop: 02/09/21 23:53 (1) Syncope Syncope type: unspecified Qualified Code(s): R55 - Syncope and collapse
[2021-01-12 05:51] LABS: Basophils # (auto) 0.01 K/uL (0-0.2); Basophils % (auto) 0.1 %; Hematocrit (blood only) 46.7 % (42-52); Hemoglobin 15.8 g/dL (14.0-18.0); Immature Granulocytes # (auto) 0.01 K/uL (0.00-0.02); Immature Granulocytes % (auto) 0.1 %; Lymphocytes % (auto) 28.7 %; Mean Corpuscular Hemoglobin 30.6 pg (25-34); Mean Corpuscular Hgb Conc 33.8 g/dL (32-36); Mean Corpuscular Volume 90.3 fL (80-100); Mean Platelet Volume 10.9 fL (7.4-10.4); Monocytes # (auto) 0.68 K/uL (0.11-0.59); Monocytes % (auto) 8.5 %; Neutrophils # (auto) 5.02 K/uL (1.4-6.5); Neutrophils % (auto) 62.6 %; Platelet Count 212 K/uL (130-400); RDW Coefficient of Variation 14.3 % (11.5-14.5); RDW Standard Deviation 47.4 fL (36.4-46.3); Red Blood Count 5.17 M/uL (4.7-6.1); White Blood Count 8.02 K/uL (4.8-10.8)
[2021-01-12 06:07] LABS: Calcium 8.4 mg/dl (8.5-10.1); Creatinine Clr Calc Pharmacy 121.9 ml/min; Est GFR (Non-African American) 113.9 ml/min; Potassium 4.2 mmol/L (3.5-5.1)
--- NOTE | 2021-01-12 06:23 | Electrocardiogram Report ---
Test Reason : Blood Pressure : / mmHG Vent. Rate : 104 BPM Atrial Rate : 104 BPM P-R Int : 218 ms QRS Dur : 140 ms QT Int : 354 ms P-R-T Axes : 036 096 030 degrees QTc Int : 465 ms Sinus tachycardia with 1st degree A-V block Possible Left atrial enlargement Rightward axis Non-specific intra-ventricular conduction block Abnormal ECG No previous ECGs available Confirmed by Edwar Simon ([id number]) on 01/12/2021 6:22:47 AM Referred By: REFERRED SELF Confirmed By:Edwar Simon
--- NOTE | 2021-01-12 06:39 | Electrocardiogram Report ---
Test Reason : Blood Pressure : / mmHG Vent. Rate : 069 BPM Atrial Rate : 069 BPM P-R Int : 182 ms QRS Dur : 126 ms QT Int : 420 ms P-R-T Axes : 033 098 060 degrees QTc Int : 450 ms Sinus rhythm with Premature atrial complexes with Aberrant conduction Rightward axis Non-specific intra-ventricular conduction block Abnormal ECG When compared with ECG of 10-JAN-2021 17:52, Aberrant conduction is now Present IA interval has decreased Vent. rate has decreased BY 35 BPM Confirmed by Edwar Simon ([id number]) on 01/12/2021 6:39:02 AM Referred By: REFERRED SELF Confirmed By:Edwar Simon
[2021-01-12] MEDS ORDERED: NICOTINE 14 MG/24 HR PATCH TD SCH (09:45)
--- NOTE | 2021-01-12 11:57 | Hospitalist Progress Note ---
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[employer] He did not have any evidence of seizures on physical examination and no more seizure noted since admission He received 1 dose of Ativan and remains drowsy since then EEG has been negative, CT of the head and neck are negative Appreciate neurology input and recommendation Will DC Lexapro Will need to have an appointment with primary care physician to have an event monitor placed (2) Abnormal EKG: Plan: Has interventricular conduction delay No evidence of arrhythmias and/or ACS Appreciate cardiology input and recommendation Will require to have an event monitor placed from primary care's office (3) History of Graves' disease: Plan: No signs and/or symptoms of hypothyroidism Plan: Will observe overnight and if stable will be discharged home tomorrow. Admission and Anticipated Discharge Date Admission Date: January 10, 2021 Subjective 01/11/2021 The patient was seen and examined in telemetry unit He was brought in from [facility] with a possible syncope and/or seizure Remains minimally confused but denies any other symptoms today No more seizures noted while in the hospital 01/12/2021 The patient was seen and examined in telemetry unit He denies any more symptoms and did not have any episodes of seizure activity He has been ambulating in the hallway without any difficulties He will be discharged home this afternoon Review of Systems Review of Systems: All systems reviewed and are unremarkable except as noted below Physical Exam Physical Exam: Lying in bed comfortably Constitutional: + ill appearing and average body habitus Eyes: PERRL, conjunctivae normal, anicteric sclerae ENMT: external ear and nose normal, oropharynx normal Neck: trachea midline, no thyromegaly Respiratory: no respiratory distress Auscultation: lungs clear to auscultation bilaterally Cardiovascular: Rate/Rhythm: regular rate and regular rhythm; not tachycardic Heart Sounds: normal S1 and normal S2; no murmur Extremities: no edema Gastrointestinal (Abdomen): normal bowel sounds, soft, nontender, no hepatosplenomegaly Musculoskeletal: No acute arthritis in any joint Neurologic: Alert, awake and oriented x3. No focal sensory and motor deficit appreciated Results & Data Results & Data ([facility]) Vital Signs (Past 12 Hours) Vital Signs Temp Pulse Pulse Resp BP Pulse Ox 01/12/21 11:24 37.0 C 61 17 117/70 99 01/12/21 08:20 55 L 01/12/21 07:45 37.3 C 64 19 117/73 98 01/12/21 03:07 36.8 C 61 16 104/66 97 Laboratory Results Short CBC 01/12/21 Range/Units 05:15 WBC 8.02 (4.8-10.8) K/uL Hgb 15.8 (14.0-18.0) g/dL Hct 46.7 (42-52) % Plt Count 212 (130-400) K/uL BMP 01/12/21 05:15 Sodium 138 Potassium 4.2 Chloride 108 H Carbon Dioxide 26 BUN 13 Creatinine 0.79 Glucose 85 Calcium 8.4 L Medications Administered Current Inpatient Medications Acetaminophen (Acetaminophen 325 Mg Tab) 650 mg PO Q4H PRN PRN Reason: Pain or Fever Stop: 02/09/21 23:53 Lorazepam (Ativan) 1.5 mg in 3 mls @ 3 mls/min IV Q4H PRN PRN Reason: Breakthrough Seizures Stop: 02/09/21 23:53 Miscellaneous (Remove Nicoderm Patch) 1 ea N/A DAILY@[id number] [facility] Stop: 02/12/21 08:58 Last Admin: 01/12/21 10:31 Dose: 1 ea Documented by: Nicotine (Nicotine 14 Mg/24 Hr Patch) 14 mg TD QAM [facility] Stop: 02/11/21 09:44 Last Admin: 01/12/21 10:30 Dose: 14 mg Documented by: Nitroglycerin (Nitroglycerin Sl 0.4 Mg/Tab Tab) 0.4 mg SL UD PRN PRN Reason: Chest Pain Stop: 02/09/21 23:53 (1) Syncope Syncope type: unspecified Qualified Code(s): R55 - Syncope and collapse
--- NOTE | 2021-01-12 12:17 | Electrocardiogram Report ---
Test Reason : Blood Pressure : / mmHG Vent. Rate : 059 BPM Atrial Rate : 059 BPM P-R Int : 176 ms QRS Dur : 108 ms QT Int : 416 ms P-R-T Axes : 040 106 069 degrees QTc Int : 411 ms Sinus bradycardia with sinus arrhythmia Rightward axis Borderline ECG When compared with ECG of 11-JAN-2021 06:13, (unconfirmed) Aberrant conduction is no longer Present Confirmed by Jenaro Rico ([id number]) on 01/12/2021 12:16:36 PM Referred By: REFERRED SELF Confirmed By:Tashi Rico
--- NOTE | 2021-01-13 07:25 | Discharge Summary ---
Date of Service January 13, 2021 Admission HPI Per Admitting Provider DICTATED BY: Donnie Rangel MD DATE OF ADMISSION: 01/10/2021. CHIEF COMPLAINT: Syncope with seizure. HISTORY OF PRESENT ILLNESS: A 40-year-old male with ongoing tobacco abuse. No other significant medical problems. Was brought in because of syncope vs seizures. 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 The patient does not remember or recollect anything. The next thing he remember was the EMS coming and by that time he was alert and awake. He was brought in here out of the hospital EKG showed possible AFib versus wide complex rhythm and was brought into the ER and he was given a dose of Ativan. Currently sleepy, but able to answer all the questions appropriately and his significant other is in the room. As per his significant other, the patient a couple of days ago woke up in the middle of the night complaining of palpitations and was shaky, anxious. At that time, she checked his blood pressure and systolic was 180, but later it came down. The next day, he went to Urgent Care, where his blood pressure was okay and he was prescribed Lexapro. He just took the first dose of Lexapro in the morning today. Currently, the patient smokes two packs of cigarettes daily. Denies any alcohol use. No drug use. Does not smoke, does not use any marijuana. His urine drug screen was unremarkable in the ER. Denies any fever or chills. No cough, no chest pain, no shortness of breath, no nausea, no abdominal pain, no headache, no blurred visions, no earache, no runny nose, no sore throat. Appetite is okay, no dysphagia. Normal bowel and bladder movements. He generally goes to the bathroom frequently and that is not unusual for him. No swelling in the legs. Otherwise, he is active. He works 11- to 12-hour shifts. Currently somewhat drowsy, but otherwise hemodynamically stable. Admission Exam Per Admitting Provider GENERAL: The patient is of moderate build, not in acute distress. VITAL SIGNS: Temperature 36.8, pulse 75, respiratory rate 24, blood pressure 120/65, oxygen 97% on room air. HEENT: Pupils equal, round and reactive to light. NECK: No JVD. No neck masses. CARDIOVASCULAR: S1 and S2 heard, regular rate and rhythm. No murmur, no gallop. RESPIRATORY SYSTEM: Normal AP diameter. No accessory muscle use. No wheezing, no crackles. ABDOMEN: Soft, bowel sounds present, nontender, no distention. CENTRAL NERVOUS SYSTEM: Cranial nerves II-XII grossly intact, nonfocal. EXTREMITIES: No edema, no erythema. Principal Diagnosis Syncopal episode, no neurological and/or cardiac causes found out, history of Graves' disease Discharge Exam Constitutional + ill appearing and average body habitus Eyes PERRL, conjunctivae normal, anicteric sclerae ENMT external ear and nose normal, oropharynx normal Neck trachea midline, no thyromegaly Respiratory no respiratory distress Auscultation: lungs clear to auscultation bilaterally Cardiovascular Rate/Rhythm: regular rate and regular rhythm; not tachycardic Heart Sounds: normal S1 and normal S2; no murmur Extremities: no edema Gastrointestinal (Abdomen) normal bowel sounds, soft, nontender, no hepatosplenomegaly Discharge Data Allergies Allergy/AdvReac Type Severity Reaction Status Date / Time No Known Allergies Allergy Unverified 01/10/21 18:34 Consultations 01/10/21 20:54 ED Decision to Admit Stat 01/11/21 08:00 Consult Cardiology Routine Consult Neurology Routine Ordered Studies 01/10/21 17:53 CT cervical spine wo con Stat 01/10/21 17:54 CT head/brain wo con Stat Hospital Course (1) Syncope: 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 He did not have any evidence of seizures on physical examination and no more seizure noted since admission He received 1 dose of Ativan and remains drowsy since then EEG has been negative, CT of the head and neck are negative Appreciate neurology input and recommendation Will DC Lexapro Will need to have an appointment with primary care physician to have an event monitor placed (2) Abnormal EKG: Has interventricular conduction delay No evidence of arrhythmias and/or ACS Appreciate cardiology input and recommendation Will require to have an event monitor placed from primary care's office (3) History of Graves' disease: No signs and/or symptoms of hypothyroidism Will observe overnight and if stable will be discharged home tomorrow. Total Time Total Time Spent Total Time Spent (In Minutes): 35 minutes Discharge Plan Discharge Items Patient Disposition: Home - Self-Care Reason For Visit: SEIZURE Discharge Diagnosis: Syncopal episode, no neurological and/or cardiac causes found out, history of Graves' disease Condition on Discharge: Good Activity: Resume your previous activity Non-emergency contact: Primary Care Provider Call non-emergency contact if: you have any medication questions and your symptoms worsen Follow-up/Referrals: PCP,NO [Primary Care Provider] - (Will call you with an appointment with Ryan physician in [facility] within 7 days) Diet: Regular Addtl Attending Provider Instructions: Do not take anymore Lexapro or hydroxyzine Quit smoking Do not go to work until being evaluated by your physician Pending Studies at Discharge: No Stand-Alone Forms: My [employer], Work/School Release, Smoking Cessation Medications and DC Order Prescriptions: New nicotine 14 mg/24 hr patch 24 hour 1 patch transdermal DAILY Qty: 28 RF: 0 Discontinued hydroxyzine HCl 25 mg tablet 25 mg PO HS RF: 0 escitalopram oxalate 10 mg tablet 10 mg PO DAILY RF: 0 Discharge Orders: Discharge Order (Routine); Ordered 01/12/21 Ordered By: Clairssa Mosley Admission Data Admit Date/Time: 01/10/21 22:02 Attending Provider: Clarissa Mosley Admit Provider: Donnie Rangel Primary Care Provider: PCP,NO Other Providers: Donnie Rangel ; Dony Dalal ; Jose J Marquez ; Moe Maradiaga ; Scooby Saha ; Mario Doe ; John Bhatti ; Nicole Perez ; Elli Soto ; Kylah Wu ; Irving Mcelroy ; Elli Zendejas ; David Sol ; Elli Kelly ; Salo Alvarez Other Interventions: Discharge Summary Assessment (RN) Last Done: 01/12/21 12:19 Supervising Physician Co-Signing Physician Notes Patient was seen and examined this afternoon. He is largely amnestic to the events of yesterday although states he was at work feeling okay and then reportedly must have had a loss of consciousness. He did not bite his tongue with no urinary incontinence. He has no history of prior syncope or seizures. He reports no family history of epilepsy. No history of childhood seizures. He was recently started on 2 new medication which he notes was Lexapro which he had 2 doses as well as hydroxyzine. He states to me is very concerned about the bill for this hospital admission. Otherwise he reports fine without any new complaints or concerns. He feels back to baseline. He does note at home ever occasionally having a tremor although not at the moment. He is otherwise not on any additional medications. He denies any illicit drug use or alcohol. No focal neurological deficit noted on examination today. His tongue is without abrasion. At this point I agree with cardiology and that this was a presumed syncopal episode. Other differential diagnosis includes possible adverse side effect from recent SSRI. Recommend stopping Lexapro. Routine EEG was normal which was reassuring. At this point no strong clinical suspicion that this patient has epilepsy and requires an antiepileptic medication. Patient lives in the [facility] and elects to follow-up with his PCP upon discharge. Should he have any recurrent events will need additional neurological consultation. Okay to discharge from neurology standpoint. Please contact me with any additional questions or concerns.
== END 2021-01-12 13:39 | disposition home or self-care (01) ==
LOC: 2S 17:40 → ED 17:40 → 2S 23:00